=== PATIENT | female | born 1940 | race Caucasian/White ===

== ENCOUNTER → 2018-09-26 14:32 | Emergency (ER) | payer MEDICARE ==
[~2018-09-26 14:32] MED LIST: Ondansetron ODT TAB* 4 MG SL ONE
--- NOTE | 2018-09-26 14:56 | ED ---
Complex/Multi-Sys Presentation - HPI Summary HPI Summary: This patient is a 78 year old F presenting to ED accompanied by family with a chief complaint of N/V and dizziness 0.5 hours after taking some Doxycycline at 1200 today. The patient reports she had a tick bite that was probably there since 09/24/18 since it wasnt engorged and her pulled it out in the morning the next day. They called their PCP and their nurse told them to get some doxycycline. The patient rates the pain 0/10 in severity. Symptoms aggravated by a dose of doxycycline. Symptoms alleviated by nothing. - History Of Current Complaint Chief Complaint: EDNauseaVomitDiarrh Time Seen by Provider: 09/26/18 14:44 Hx Obtained From: Patient, Family/Warhead Maintenance Specialist - in the room Onset/Duration: Sudden Onset, Lasting Hours, Still Present Timing: Constant, Hours Severity Currently: None Aggravating Factor(s): dose of doxycycline Alleviating Factor(s): nothing Associated Signs And Symptoms: Positive: Dizziness, Nausea, Vomiting - Allergies/Home Medications Allergies/Adverse Reactions: Allergies Allergy/AdvReac Type Severity Reaction Status Date / Time Beta-Blockers Allergy See Comment Verified 09/26/18 15:58 (Beta-Adrenergic Bloc Home Medications: Home Medications Levothyroxine TAB* [Synthroid TAB*] 88 mcg PO DAILY 09/26/18 [History Confirmed 09/26/18] Multivitamins/Minerals TAB* [Theragran/minerals TAB*] 1 tab PO DAILY 09/26/18 [ History Confirmed 09/26/18] Red Yeast Rice 600 mg PO DAILY 09/26/18 [History Confirmed 09/26/18] PMH/Surg Hx/FS Hx/Imm Hx - Cancer History Hx Chemotherapy: No Hx Radiation Therapy: Yes - GRAVES DISEASE Infectious Disease History: No Infectious Disease History: Denies: Traveled Outside the [place] in Last 30 Days - Social History Alcohol Use: None Substance Use Type: Reports: None Smoking Status (MU): Never Smoked Tobacco Review of Systems Positive: Vomiting, Nausea Neurological: Other - dizziness All Other Systems Reviewed And Are Negative: Yes Physical Exam - Summary Physical Exam Summary: Appearance: Well-appearing, Well-nourished, lying in bed comfortable Skin: Warm, dry, no obvious rash Eyes: sclera anicteric, no conjunctival pallor ENT: mucous membranes moist Neck: deferred Respiratory: No signs of respiratory distress Cardiovascular: Appears well perfused, pulses are nml Abdomen: soft Musculoskeletal: Moving all 4 extremities without obvious discomfort Neurological: Awake and alert, mentation is normal, speech is fluent and appropriate Psychiatric: affect is normal, does not appear anxious or depressed Triage Information Reviewed: Yes Vital Signs On Initial Exam: Initial Vitals Temp Pulse Resp BP Pulse Ox 98.5 F 64 16 131/79 95 09/26/18 14:37 09/26/18 14:37 09/26/18 14:37 09/26/18 14:37 09/26/18 14:37 Vital Signs Reviewed: Yes Diagnostics - Vital Signs Vital Signs Temp Pulse Resp BP Pulse Ox 09/26/18 14:37 98.5 F 64 16 131/79 95 - Laboratory Lab Statement: Any lab studies that have been ordered have been reviewed, and results considered in the medical decision making process. Re-Evaluation - Re-Evaluation First Eval Re-Evaluation Time: 15:30 Change: Unchanged Comment: Patient has not received zofran yet. Condition was unchanged. Complex Multi-Symp Course/Dx Assessment/Plan: This patient is a 78 year old F presenting to ED accompanied by family with a chief complaint of N/V and dizziness 0.5 hours after taking some Doxycycline at 1200 today. The patient was given some Zofran for the nausea. The patient feels better in the ER after given the zofran. Patient will be discharged with dx of medication reaction and vomiting. Patient understands and agrees with this plan. - Diagnoses Differential Diagnoses/HQI/PQRI: Other - medication reaction and vomiting Provider Diagnoses: Medication reaction, Vomiting Discharge - Sign-Out/Discharge Documenting (check all that apply): Patient Departure - discharge Patient Received Moderate/Deep Sedation with Procedure: No - Discharge Plan Condition: Good Disposition: HOME Patient Education Materials: Antibiotic Medication Allergy (ED) Referrals: Taco Gomez DO [Primary Care Provider] - Additional Instructions: You seem to have become ill from the medication prescribed to prevent Lyme disease. It doesn't sound like the tick was attached to you long enough to transmit Lyme, so in any event I would not recommend further antibiotics. - Billing Disposition and Condition Condition: GOOD Disposition: Home - Attestation Statements Document Initiated by Scribe: Yes Documenting Scribe: Brayden Claire Provider For Whom Scribe is Documenting (Include Credential): Daren Kiran MD Scribe Attestation: I, Brayden Claire, scribed for Daren Kiran MD on 09/26/18 at 1711. Scribe Documentation Reviewed: Yes Provider Attestation: The documentation as recorded by the scribeBrayden accurately reflects the service I personally performed and the decisions made by me, Daren Kiran MD Status of Scribe Document: Viewed
[2018-09-26 16:35] VITALS: BP 127/73
== END | disposition home or self-care (01) ==
LOC: ED 14:32
DX: R11.10 Vomiting, unspecified (principal); R19.7 Diarrhea, unspecified; E05.00 Thyrotoxicosis with diffuse goiter without thyrotoxic crisis or storm; T36.4X5A Adverse effect of tetracyclines, initial encounter; Y92.9 Unspecified place or not applicable; T14.8XXA Other injury of unspecified body region, initial encounter; W57.XXXA Bitten or stung by nonvenomous insect and other nonvenomous arthropods, initial encounter
CPT/HCPCS: 99282; A9270-GY

== ENCOUNTER 2019-06-11 22:02 | Inpatient (IN) | payer MEDICARE ==
--- NOTE | 2019-06-11 22:26 | ED ---
Syncope/Near Syncope - HPI Summary HPI Summary: Patient complains of one episode of near syncope and one episode of syncope today. Syncopal episode after patient started from sitting position. First episode of near-syncope occur with walking. States right thigh pain status post fall from syncope. One episode of vomiting after syncopal episode. Patient brought by EMS, BGL 138. Patient denies SOB, CP, N/V/V/take any other injury, pain or symptoms. Patient states history of vasovagal, but denies regular lightheadedness with change in position. States history of syncope when she gave blood 10 years ago, another episode of syncope secondary to pain after falling. Denies any other chronic episodes of lightheadedness or syncope , until today. Medical history is hypothyroid. - History Of Current Complaint Chief Complaint: EDSyncope Time Seen by Provider: 06/11/19 22:24 Hx Obtained From: Patient, Family/Swimming Teacher Onset/Duration: Sudden Onset Timing: Intermittent Episode Lasting Context: Witnessed Activity At Onset: Other Associated Head Trauma: No Aggravating Factor(s): Position Change Alleviating Factor(s): Spontaneous Resolution - Allergies/Home Medications Allergies/Adverse Reactions: Allergies Allergy/AdvReac Type Severity Reaction Status Date / Time Beta-Blockers Allergy See Comment Verified 09/26/18 15:58 (Beta-Adrenergic Bloc PMH/Surg Hx/FS Hx/Imm Hx Endocrine/Hematology History: Denies: Hx Anticoagulant Therapy Cardiovascular History: Denies: Hx Pacemaker/ICD History: Denies: Hx Dialysis Sensory History: Denies: Hx Eye Prosthesis Opthamlomology History: Denies: Hx Legally Blind EENT History: Denies: Hx Deafness - Cancer History Hx Chemotherapy: No Hx Radiation Therapy: Yes - GRAVES DISEASE Infectious Disease History: No Infectious Disease History: Denies: Traveled Outside the [place] in Last 30 Days - Family History Known Family History: Positive: Non-Contributory - Social History Alcohol Use: None Substance Use Type: Reports: None Smoking Status (MU): Never Smoked Tobacco Review of Systems Constitutional: Negative Eyes: Negative ENT: Negative Cardiovascular: Negative Respiratory: Negative Gastrointestinal: Negative Genitourinary: Negative Musculoskeletal: Other Skin: Negative Positive: Syncope Psychological: Normal All Other Systems Reviewed And Are Negative: Yes Physical Exam - Summary Physical Exam Summary: No ecchymosis, erythema, deformity, swelling noted to right hip and right thigh. Mild pain with palpation of right thigh. Triage Information Reviewed: Yes Vital Signs On Initial Exam: Initial Vitals Temp Pulse Resp BP Pulse Ox 98.2 F 66 18 131/72 96 06/11/19 22:14 06/11/19 22:14 06/11/19 22:14 06/11/19 22:14 06/11/19 22:14 Vital Signs Reviewed: Yes Appearance: Positive: Well-Appearing Skin: Positive: Warm Head/Face: Positive: Normal Head/Face Inspection Eyes: Positive: Normal Neck: Positive: Supple Respiratory/Lung Sounds: Positive: Clear to Auscultation Cardiovascular: Positive: Normal Abdomen Description: Positive: Nontender Musculoskeletal: Positive: Normal Neurological: Positive: Normal Psychiatric: Positive: Normal AVPU Assessment: Alert - Sophia Coma Scale Best Eye Response: 4 - Spontaneous Best Motor Response: 6 - Obeys Commands Best Verbal Response: 5 - Oriented Coma Scale Total: 15 Procedures - Sedation Patient Received Moderate/Deep Sedation with Procedure: No Diagnostics - Vital Signs Vital Signs Temp Pulse Resp BP Pulse Ox 06/11/19 22:14 98.2 F 66 18 131/72 96 - Laboratory Result Diagrams: 06/11/19 22:35 06/11/19 22:35 Lab Statement: Any lab studies that have been ordered have been reviewed, and results considered in the medical decision making process. Course/Dx Course Of Treatment: Patient complains of one episode of near syncope and one episode of syncope today. Syncopal episode after patient started from sitting position. First episode of near-syncope occur with walking. States right thigh pain status post fall from syncope. One episode of vomiting after syncopal episode. Patient brought by EMS, BGL 138. Patient denies SOB, CP, N/V /V/take any other injury, pain or symptoms. Patient states history of vasovagal , but denies regular lightheadedness with change in position. States history of syncope when she gave blood 10 years ago, another episode of syncope secondary to pain after falling. Denies any other chronic episodes of lightheadedness or syncope, until today. Medical history is hypothyroid. Vital signs within normal limits. TSH 0.09. Labs otherwise unremarkable. EKG sinus rhythm, heart rate of 75, left axis deviation. Patient O2 sats dropped to 88 during stay in the ED. Admitted to hospitalist for syncope and hypoxia. - Diagnoses Provider Diagnoses: Syncope, Hypoxia Discharge ED - Sign-Out/Discharge Documenting (check all that apply): Patient Departure - Discharge Plan Condition: Stable Disposition: ADMITTED TO [facility] Referrals: Taco Gomez DO [Primary Care Provider] - - Billing Disposition and Condition Condition: STABLE Disposition: Admitted to [facility]
[2019-06-11 22:42] LABS: ABS Eosinophils 0.3 10^3/ul (0-0.6); ABS Lymphocytes 1.8 10^3/ul (1.0-4.8); ABS Monocytes 0.8 10^3/ul (0-0.8); ABS Neutrophils 6.6 10^3/ul (1.5-7.7); Hematocrit 39 % (35-47); Hemoglobin 13.2 g/dL (12.0-16.0); Mean Corpuscular HGB Conc 34 g/dL (31-36); Mean Corpuscular Hemoglobin 32 pg (27-31); Mean Corpuscular Volume 93 fL (80-97); Mean Platelet Volume 9.2 fL (7.4-10.4); Platelet Count 192 10^3/uL (150-450); Red Blood Count 4.18 10^6 /uL (3.70-4.87); Red Cell Distribution Width 13 % (10-15); White Blood Count 9.6 10^3/uL (3.5-10.8)
[2019-06-11 22:59] LABS: Albumin 3.7 g/dL (3.2-5.2); Albumin/Globulin Ratio 1.2 (1-3); BUN/Creatinine Ratio 19.6 (8-20); C Reactive Protein 2.23 mg/L (<8.01); Calcium 8.9 mg/dL (8.6-10.3); EGFR African American 63.6 (>60); EGFR Non-African American 52.5 (>60); Globulin 3.1 g/dL (2-4); Magnesium 2.2 mg/dL (1.9-2.7); Potassium 3.8 mmol/L (3.5-5.0); Total Bilirubin 0.3 mg/dL (0.2-1.0); Total Protein 6.8 g/dL (6.4-8.9)
[2019-06-11 23:00] LABS: Troponin I 0.01 ng/mL (<0.03)
[2019-06-11 23:13] LABS: TSH (Thyroid Stimulating Horm) 0.09 mcIU/mL (0.34-5.60)
[2019-06-11] MEDS ORDERED: NS 0.9% 1000 ML** 1,000 ML IV ONE (23:47)
[2019-06-12 02:53] LABS: Influenza A Molecular Negative (Negative); Influenza B Molecular Negative (Negative)
--- NOTE | 2019-06-12 04:55 | ADMNOTE ---
Subjective Interval History: this is my HP 79 yo female with hx of hypothyroidism presented with an episode of syncope and intractable vomiting. It all started while she was walking, she felt as if she was going to pass out. It resolved. But then later in the day, when she went from sitting to standing, she felt lightheaded, fell to her knees and lost consciousness. She woke up in ambulance. She then started having multiple episodes of vomiting. No chest pain, no vertigo, no MURPHY. She is able to walk now, but she has a lot of pain in her right leg. The ED did obtain imagings of her hip and femur, official reads still pending. Family History: Unchanged from Admission Social History: Unchanged from Admission Past Medical History: Unchanged from Admission Review of Systems - Measurements Intake and Output: Intake and Output Last 24 Hours 06/09/19 06/10/19 06/11/19 06/12/19 06:59 06:59 06:59 06:59 Weight 145 lb - Review of Systems Constitutional Symptoms: Positive: Unexplained Falls Negative: Weight Gain, Weight Loss, Weakness, Fatigue, Fever, Night Sweats, Other Dermatology: Negative: Normal, Rash, Skin Lesions, Cancer, Skin Lumps, Other HEENT: Negative: Normal, Change in Hearing, Vertigo, Dental Problems, Tinnitus, Sinus Problem, Other Eyes: Negative: Normal, Change in Vision, Double Vision, Eye Pain, Glaucoma, Cataract, Contacts or Glasses, Other Thyroid: Negative: Normal, Goiter, Thyroid Nodule, Cold Intolerance, Heat Intolerance , Sweatiness, Tremor, Frequent Defecation, Constipation, Palpitations, Primary Hypothyroidism, Primary Hyperthyroidism, Weight Loss, Weight Gain, Change in Skin/Hair, Change in Menstruation, Radiation Exposure, Other Pulmonary: Negative: Normal, Cough, Sputum, Hemoptysis, Wheezing, Respiratory Distress, Shortness of Breath, COPD, Asthma, Exercise Intolerance, Home Oxygen, Other Cardiology: Negative: Normal, Chest Pain, Shortness of Breath, Palpitations, Swelling of Ankles, Peripheral Vascular Dis, Edema, Faintness, Syncope, Claudication, Proximal NocturnalDyspnea, Orthopnoea, Other Gastroenterology: Negative: Normal, Abdominal Pain, Nausea, Vomiting, Anorexia, Indigestion, Difficulty Swallowing, Heartburn, Constipation, Diarrhea, Blood in Stools, Change in Bowel Habits, Haematemesis, Melena, Other Genital - Urinary: Negative: Normal, Dysuria, Hematuria, Polyuria, Nocturia, Other Endocrinology: Negative: Normal, Thyroid Problems, Adrenal Problems, Gonadal Problems, Family Hx Endocrine Disorders, Obesity, Diabetes Mellitus, Hyperglycemia, Hx Hypoglycemia, Diabetic Foot Ulcers, Calluses, Hirsutism, Menstrual Abnormalities , Polydipsia, Polyuria, Gonadal Problems, Gynecomastia, Pituitary disease, Other Hematologic/Lymphatic: Negative: Anemia, Easy Bruising, Hx Leukemia, Hx Lymphoma, Use of Anticoagulant, Use of Antiplatelet Drugs, Other Neurology: Negative: Normal, Headache, Migraines, Change in Vision, Diplopia, Dizziness , Change in Balancing, Change in Coordination, Change in Memory, Change in Speech, Change in Sphincter Function, Change in Walking, Numbness\Paresthesiae, Unexplained Weakness, Hx of Stroke\TIA, Hx of Seizures, Other Psychiatry: Negative: Normal, Depression, Anxiety, Depressed Mood, Anhedonia, Sexual Dysfunction, Weight Change, Guilt Feelings, Tearfulness, Unusual Fatigue, Unusual Anxiety, Suicidal Ideation, Hypomania, Eating Disorders, Other Allergic/Immunologic: Negative: Hx Anaphylaxis, Hx Angioedema, Hx Environmental, Hx Seasonal, Asthma, Hx HIV, Immunocompromise, Swollen Glands LymphNodes, Other Objective Active Medications: Levothyroxine Sodium (Synthroid Tab*) 88 mcg PO DAILY@0600 [facility] Vital Signs - 8 hr 06/11/19 06/11/19 06/11/19 22:14 22:34 23:03 Temperature 98.2 F Pulse Rate 66 72 80 Respiratory 18 20 Rate Blood Pressure 131/72 (mmHg) O2 Sat by Pulse 96 97 90 Oximetry 06/12/19 06/12/19 06/12/19 00:00 01:47 02:12 Temperature Pulse Rate 70 95 96 Respiratory Rate Blood Pressure 147/88 (mmHg) O2 Sat by Pulse 97 87 98 Oximetry 06/12/19 06/12/19 06/12/19 02:13 02:15 02:28 Temperature Pulse Rate 98 97 98 Respiratory Rate Blood Pressure 155/99 155/90 (mmHg) O2 Sat by Pulse 98 98 Oximetry 06/12/19 06/12/19 06/12/19 02:42 03:00 03:57 Temperature 98.1 F Pulse Rate 76 83 98 Respiratory 18 Rate Blood Pressure 169/91 155/90 (mmHg) O2 Sat by Pulse 95 96 96 Oximetry Oxygen Devices in Use Now: None Appearance: NID Eyes: No Scleral Icterus, PERRLA Ears/Nose/Mouth/Throat: NL Teeth, Lips, Gums, Mucous Membranes Moist Neck: NL Appearance and Movements; NL JVP, Trachea Midline Respiratory: Symmetrical Chest Expansion and Respiratory Effort, Clear to Auscultation Cardiovascular: NL Sounds; No Murmurs; No JVD, No Edema Abdominal: NL Sounds; No Tenderness; No Distention Extremities: No Edema, No Clubbing, Cyanosis Skin: No Rash or Ulcers, No Nodules or Sclerosis Neurological: Alert and Oriented x 3, NL Sensation, NL Muscle Strength and Tone Result Diagrams: 06/11/19 22:35 06/11/19 22:35 Assess/Plan/Problems-Billing Assessment: - Patient Problems (1) Syncope Current Visit: Yes Status: Acute Code(s): R55 - SYNCOPE AND COLLAPSE SNOMED Code(s): 884529275 Comment: 1 episode earlier today and she hurt her leg. XR of her femur and hip still pending official read tele, echo pain control (2) Hypothyroidism Current Visit: Yes Status: Acute Code(s): E03.9 - HYPOTHYROIDISM, UNSPECIFIED SNOMED Code(s): 62874298 Comment: resume synthroid (3) Full code status Current Visit: Yes Status: Acute Code(s): Z78.9 - OTHER SPECIFIED HEALTH STATUS SNOMED Code(s): 157278312 (4) DVT prophylaxis Current Visit: Yes Status: Acute Code(s): Z29.9 - ENCOUNTER FOR PROPHYLACTIC MEASURES, UNSPECIFIED SNOMED Code(s): 987682539 Comment: heparin
[2019-06-12 04:56] LABS: Urine Appearance Cloudy; Urine Bilirubin Negative (Negative); Urine Blood Negative (Negative); Urine Color Yellow; Urine Glucose Negative (Negative); Urine Ketones Negative (Negative); Urine Nitrite Negative (Negative); Urine Protein Negative (Negative); Urine Specific Gravity 1.017 (1.010-1.030); Urine Urobilinogen Negative (Negative)
[2019-06-12] MEDS ORDERED: oxyCODONE TAB* 5 MG TAB PO PRN (04:59)
[2019-06-12] MEDS: Acetaminophen TAB* 325 MG PO PRN (05:45)
[2019-06-12] MEDS: LEVOTHYROXINE 88 MCG PO SCH (05:48)
--- NOTE | 2019-06-12 10:24 | ECHO ---
*[facility]* [place] [address] Fax #: [phone] Transthoracic Echocardiogram Patient: Lizzette Edge : 1940 Study Date: 06/12/2019 Age: 79 Gender: F HR: 78 bpm Height: 65 in /165.1 cm BSA: 1.73 m^2 Weight: 144.7 lb /65.8 kg BMI: 24.1 kg/m^2 *Manager Balance: * Yajaira Andrew [facility] *Referring Physician: * Molly Marcial *Reading Physician: * Cm Bliss MD Indications: Syncope. History: Syncope. Conclusions Summary: - Left ventricle: Systolic function is normal. The estimated ejection fraction is 55-60%. Wall motion is normal; there are no regional wall motion abnormalities. - Mitral valve: There is trace regurgitation. - Aortic valve: There is no evidence of stenosis. - Tricuspid valve: There is no significant regurgitation. - Pulmonary arteries: Systolic pressure can not be accurately estimated. - Study data: No prior study is available for comparison. Study data: Transthoracic echocardiogram. Procedure: Transthoracic echocardiography was performed. Image quality was fair. Complete 2D, spectral Doppler, and color flow Doppler. Location: Bedside. Patient status: Inpatient. Patient room number: 443 02. No prior study is available for comparison. Rhythm: Normal sinus rhythm. Findings Left ventricle: The cavity size is normal. Wall thickness is mildly increased. Systolic function is normal. The estimated ejection fraction is 55-60%. Wall motion is normal; there are no regional wall motion abnormalities. Left ventricular diastolic function parameters are normal for the patient's age. Right ventricle: The cavity size is normal. Systolic function is normal. Left atrium: The atrium is normal in size. Right atrium: The atrium is normal in size. Mitral valve: The leaflets are normal thickness. There is no evidence of stenosis. There is trace regurgitation. Aortic valve: The valve is trileaflet. The leaflets are mildly thickened. There is no evidence of stenosis. There is no significant regurgitation. Tricuspid valve: The leaflets are normal thickness. There is no evidence of stenosis. There is no significant regurgitation. Pulmonic valve: The leaflets are normal thickness. There is no evidence of stenosis. There is trace regurgitation. Aorta: The aortic root appears normal. The aortic arch appears normal. Pericardium: There is no significant pericardial effusion. Pulmonary arteries: Systolic pressure can not be accurately estimated. Systemic veins: Inferior vena cava: The vessel is normal in size. There is (>= 50%) respiratory change in the IVC dimension. Measurements Left ventricle Value Ref Aortic valve Value Ref LAURA, LAX 4.5 cm 3.8 - 5.2 Ervin diam, ED 1.9 cm ---- ESD, LAX 3.3 cm 2.2 - 3.5 Peak v, S 1.11 m/sec ---- FS, LAX (L) 25 % 27 - 45 VTI, S 21.0 cm ---- PW, ED, LAX (H) 1.2 cm 0.6 - 0.9 Mean grad, S 2.0 mm Hg ---- E', lat ervin, TDI (L) 4.9 cm/sec >=10.0 Peak grad, S 5.0 mm Hg ---- E/e', lat ervin, 7 TDI Mitral valve Value Ref E', med ervin, TDI (L) 4.2 cm/sec >=7.0 Peak E 0.35 m/sec ---- E/e', med ervin, 8 Peak A 0.81 m/sec -- -- TDI Decel time 92 ms ---- E', avg, TDI 4.6 cm/sec Peak E/A ratio 0.4 -- -- E/e', avg, TDI 8 <=14 Pulmonic valve Value Ref LVOT Value Ref Peak v, S 0.63 m/sec ---- Peak sia, S 0.92 m/sec Peak grad, S 2.0 mm Hg ---- Mean grad, S 2 mm Hg Aortic root Value Ref Ventricular septum Value Ref Root diam 2.8 cm <3.9 IVS, ED (H) 1.1 cm 0.6 - 0.9 Root max diam, ED 2.8 cm <3.9 Right ventricle Value Ref Ascending aorta Value Ref LAURA, LAX 2.2 cm AAo AP diam, S 2.8 cm ---- LAURA minor ax, A4C 2.8 cm 1.9 - 3.5 AAo AP diam/bsa, S 1.6 cm/m^2 ---- mid Aortic arch Value Ref Left atrium Value Ref Arch diam 2.5 cm ---- AP dim, ES 3.20 cm 2.70 - 3.80 Decending aorta Value Ref ML dim, A4C 4.4 cm Joseph peak sia 0.82 m/sec ---- SI dim, A4C 4.5 cm Vol/bsa, ES, A/L 25 ml/m^2 16 - 34 Inferior vena cava Value Ref Diam 1.2 cm ---- Right atrium Value Ref SI dim, ES 4.2 cm 3.4 - 5.3 ML dim, ES, A4C 2.8 cm 2.6 - 4.4 Estimated RAP 8 mm Hg Legend: (L) and (H) julien values outside specified reference range. Prepared and electronically signed by Cm Bliss MD 06/12/2019 10:24
--- NOTE | 2019-06-12 10:53 | PN ---
Subjective Date of Service: 06/12/19 Interval History: Ms. Jones is feeling much better today. She is not having any pain. Took Tylenol this morning. No dizziness or near syncope. Denies CP or SOB. She was hoping to go home today and is surprised to hear she has a fractured hip. No concerns from nursing. Family History: Unchanged from Admission Social History: Unchanged from Admission Past Medical History: Unchanged from Admission Objective Active Medications: Acetaminophen (Tylenol Tab*) 650 mg PO Q6H PRN PAIN - MILD Levothyroxine Sodium (Synthroid Tab*) 88 mcg PO DAILY@0600 [facility] Oxycodone HCl (Roxycodone Tab*) 5 mg PO Q6H PRN PAIN - SEVERE Vital Signs - 8 hr 06/12/19 06/12/19 06/12/19 03:00 03:57 04:11 Temperature 98.1 F 98.6 F Pulse Rate 83 98 98 Respiratory 18 18 Rate Blood Pressure 155/90 155/93 (mmHg) O2 Sat by Pulse 96 96 99 Oximetry 06/12/19 07:29 Temperature 97.3 F Pulse Rate 82 Respiratory 18 Rate Blood Pressure 127/71 (mmHg) O2 Sat by Pulse 98 Oximetry Oxygen Devices in Use Now: None Appearance: Elderly female sitting in bed in NAD Ears/Nose/Mouth/Throat: Mucous Membranes Moist Neck: NL Appearance and Movements; NL JVP, Trachea Midline Respiratory: Symmetrical Chest Expansion and Respiratory Effort, Clear to Auscultation Cardiovascular: NL Sounds; No Murmurs; No JVD, RRR Abdominal: NL Sounds; No Tenderness; No Distention Extremities: No Edema Neurological: Alert and Oriented x 3 Lines/Tubes/Other Access: Clean, Dry and Intact Peripheral IV Nutrition: Taking PO's Result Diagrams: 06/11/19 22:35 06/11/19 22:35 Assess/Plan/Problems-Billing Assessment: Ms. Jones is a 79 yo F with PMH of hypothyroidism who presented to the ED after a syncopal event and was found to have a right hip fracture. - Patient Problems (1) Closed right hip fracture Code(s): S72.001A - FRACTURE OF UNSP PART OF NECK OF RIGHT FEMUR, INIT Comment : - Secondary to syncopal event prior to admission - Xray in ED showing minimally impacted and minimally displaced subcapital right femoral neck fracture - Appreciate Ortho consult - Bedrest and NPO for possible surgery later today - RCRI score is 0 indicating a 3.9% 30-day risk of adverse event; echo without abnormalities; EKG shows NSR with a left axis deviation, inverted T waves in III and V1 (consistent with EKG in 2009); no respiratory concerns; patient has been medically optimized for surgery today/tomorrow - Continue Tylenol (2) Syncope Code(s): R55 - SYNCOPE AND COLLAPSE Comment: - One episode earlier prior to admission - Negative orthostatic VS - Echo unremarkable - No abnormalities noted on tele - Possibly secondary to dehydration (3) Hypothyroidism Code(s): E03.9 - HYPOTHYROIDISM, UNSPECIFIED Comment: - Continue levothyroxine (4) DVT prophylaxis Code(s): Z29.9 - ENCOUNTER FOR PROPHYLACTIC MEASURES, UNSPECIFIED Comment: - SCDs (5) Full code status Code(s): Z78.9 - OTHER SPECIFIED HEALTH STATUS Comment: Status and Disposition: Inpatient. Anticipate d/c home when medically stable. Attending: Jamaica Mariano
--- NOTE | 2019-06-12 13:37 | CONSULT ---
Consult Consult: Patient Name and : Lizzette Edge, 1940 Provider: Dr. Saucedo/Dr. Humphrey HPI: The pt is a 79 y/o female who was BIBA last night. She states that she was sitting on a stool yesterday and went to stand up when she fainted and fell onto her right hip. She states that her and children could not get her to be very responsive at that point. SHe was vomiting and her eyes had rolled back into her head. She states that she was taken in by ambulance and admitted to the hospital. She was given food this morning at 0730 and ate cereal and orange juice. She has not had any food since then. She states that the ER last night told her that she did not have a fracture and therefore walked on her leg using a walker this morning to ambulate to the bathroom. She was instructed that she does indeed have a fracture and she should remain NWB of the RLE. PMH: Hypothyroidism MEDICATIONS: Acetaminophen (Tylenol Tab*) 650 mg PO Q6H PRN PRN Reason: PAIN - MILD Last Admin: 06/12/19 05:45 Dose: 650 mg Levothyroxine Sodium (Synthroid Tab*) 88 mcg PO DAILY@0600 [facility] Last Admin: 06/12/19 05:48 Dose: Not Given Oxycodone HCl (Roxycodone Tab*) 5 mg PO Q6H PRN PRN Reason: PAIN - SEVERE Allergies Allergy/AdvReac Type Severity Reaction Status Date / Time Beta-Blockers Allergy See Comment Verified 09/26/18 15:58 (Beta-Adrenergic Bloc PSH: Cholecystectomy SOCIAL HISTORY: Lives with . 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 Denies any drug use or smoking. Admits to occasional glass of wine. FAMILY: Non contributory ROS: General: Denies fevers, chills or night sweats. No known anesthesia problems. HEENT: denies MURPHY, lightheadedness or syncopal episodes Cardiothoracic: Negative for chest pain, heart palpitations, or edema Pulmonary: Negative for SOB with exertion, chronic cough, COPD or asthma GI: denies N/V/D/C or GERD : Negative for nocturia, urinary frequency, urinary urgency, history of UTIs or kidney problems Musculoskeletal: negative for chronic or intermittent back pain or fractures Neuro: Denies paresthesias, numbness, seizure, stroke, epilepsy, depression or anxiety Integumentary: No abrasions, lesions, rashes, lumps or open sores PHYSICAL EXAM: General: Alert & oriented, year old in no acute distress. Appropriate mood and affect HEENT: Normocephalic, atraumatic, hearing and vision grossly intact Cardio: regular rate and rhythm, S1 S2, no murmurs appreciated, no edema Pulmonary: Lungs clear to auscultation bilaterally, no wheezes, rales or rhonchi Musculoskeletal/Neurologic: Right lower extremity appears in good alignment. No bruising is present about the hip. ROM and strength were deffered at this point. She has full sensation to light touch intact distally. She has a 2+ DP pulse. IMAGING: Xrays taken on 06/11/2019 show a minimally impacted subcapital femoral neck fracture of the right hip. Xrays repeated and taken this morning show no displacement or change in the previous fracture. IMPRESSION: Right hip, minimally impacted subcapital femoral neck fracture. PLAN: We obtained a new set of xrays to evaluate for any change Hospitalists cleared the pt for surgery She will remain NPO and NWB of the RLE We will obtain a CT scan of the fracture to further evaluate . We will take the pt to the OR for a right hip cannulated screw fixation
[2019-06-12] MEDS ORDERED: Famotidine IV* 10 MG/ML 2 ML (20 mg) IV ONE (14:44)
[2019-06-12] MEDS ORDERED: Ondansetron ODT TAB* 4 MG PO ONE (14:45)
[2019-06-12] MEDS ORDERED: Buffered Lidocaine 1% SYRIN* 1 ML/SYRINGE INTRADERM ONE (14:45)
[2019-06-12] MEDS ORDERED: Dexamethasone TAB* 4 MG PO ONE (14:45)
[2019-06-12] MEDS ORDERED: Lactated Ringers 1000 ML Bag* 1,000 ML IV SCH (15:00)
--- NOTE | 2019-06-12 17:27 | PN ---
PROGRESS NOTE: DATE OF VISIT: 06/12/19 HISTORY: Lizzette is a pleasant 79-year-old female who had a syncopal episode and sustained a valgus impacted right femoral neck fracture. She had a CT scan this afternoon which shows the valgus impaction but no significant separation of the bone fragments which would make her appropriate for an attempted percutaneous pinning of the right hip. The surgical load this afternoon for emergency cases and urgent cases is quite busy, so we have arranged for some optimal time tomorrow 06/13/19 late morning. This would be more optimal time to fix her hip and I will be explaining this to the family. She is n.p.o. after midnight. [id number]/[facility] #: [id number] ESTEVAN
[2019-06-12] MEDS ORDERED: Ondansetron INJ* 2 MG/ML VIAL IV PRN (18:05)
[2019-06-13 04:44] LABS: ABS Eosinophils 0.2 10^3/ul (0-0.6); ABS Lymphocytes 1.1 10^3/ul (1.0-4.8); ABS Monocytes 1.1 10^3/ul (0-0.8); ABS Neutrophils 8.8 10^3/ul (1.5-7.7); Eosinophil % 1.6 %; Hematocrit 41 % (35-47); Hemoglobin 13.5 g/dL (12.0-16.0); Lymphocyte % 10.1 %; Mean Corpuscular HGB Conc 33 g/dL (31-36); Mean Corpuscular Hemoglobin 31 pg (27-31); Mean Corpuscular Volume 93 fL (80-97); Mean Platelet Volume 8.8 fL (7.4-10.4); Platelet Count 160 10^3/uL (150-450); Red Blood Count 4.35 10^6 /uL (3.70-4.87); Red Cell Distribution Width 13 % (10-15); White Blood Count 11.3 10^3/uL (3.5-10.8)
[2019-06-13 04:49] LABS: INR 1.04 (0.82-1.09)
[2019-06-13 05:00] LABS: BUN/Creatinine Ratio 17.1 (8-20); EGFR African American 81.8 (>60); EGFR Non-African American 67.6 (>60)
[2019-06-13] MEDS: LEVOTHYROXINE 88 MCG PO SCH (05:44)
[2019-06-13] MEDS ORDERED: HYDROmorphone INJ1* 1 MG/ML SYRINGE IV PRN ×2 (06:00→13:36)
[2019-06-13] MEDS ORDERED: fentaNYL* 50 MCG/ML 2 ML VIAL (100 MCG VIAL) IV PRN (06:00)
[2019-06-13] MEDS ORDERED: DiMENhydriNATE IV* 50 MG/ML VIAL IV PUSH PRN (06:00)
[2019-06-13] MEDS ORDERED: PROCHLORPERAZINE INJ 5 MG/ML 2 ML VIAL IV PRN (06:00)
[2019-06-13] MEDS ORDERED: Naloxone* 0.4 MG/ML 1 ML VIAL IV PRN ×2 (06:00→13:36)
[2019-06-13] MEDS: Lactated Ringers 1000 ML Bag* 1,000 ML IV SCH ×2 (07:07→20:05)
[2019-06-13] MEDS ORDERED: Famotidine IV* 10 MG/ML 2 ML (20 mg) IV ONE (10:00)
[2019-06-13] MEDS ORDERED: Dexamethasone TAB* 4 MG PO ONE (10:00)
[2019-06-13] MEDS ORDERED: Buffered Lidocaine 1% SYRIN* 1 ML/SYRINGE INTRADERM ONE (10:00)
[2019-06-13] MEDS ORDERED: Ondansetron ODT TAB* 4 MG PO ONE (10:00)
[2019-06-13] MEDS ORDERED: ceFAZolin 2 GM PREMIX in ORs 2 GM/50 ML BAG ONE (11:59)
[2019-06-13] MEDS ORDERED: Propofol* 10 MG/ML 50 ML BTL ONE (12:35)
[2019-06-13] MEDS ORDERED: Midazolam* 1 MG/ML 2 ML VIAL (2 MG) ONE (12:35)
[2019-06-13] MEDS ORDERED: KETAMINE HCL* 50 MG/ML 10 ML VIAL ONE (12:35)
[2019-06-13] MEDS ORDERED: fentaNYL* 50 MCG/ML 2 ML VIAL (100 MCG VIAL) ONE (12:35)
[2019-06-13] MEDS ORDERED: Phenylephrine 10 MG/ML VIAL* 1 ML VIAL ONE (12:35)
[2019-06-13] MEDS ORDERED: oxyCODONE TAB* 5 MG TAB PO PRN (13:36)
[2019-06-13] MEDS ORDERED: Ondansetron INJ* 2 MG/ML VIAL IV PRN (13:36)
--- NOTE | 2019-06-13 13:44 | OP ---
Operative Report - Blank - Operative Report Date of Operation: 06/13/19 Note: PATIENT: Lizzette Edge DATE OF : 1940 DATE OF SURGERY: 06/13/2019 SURGEON: Zia Burr MD [employer]: AMELIA Curran, whos assistance was necessary for positioning, retraction, help with instrumentation, and closure. ANESTHESIOLOGIST: Dr. Ramirez PREOPERATIVE DIAGNOSIS: Right valgus impacted femoral neck hip fracture. POSTOPERATIVE DIAGNOSIS: Right valgus impacted femoral neck hip fracture. PROCEDURE: Closed reduction and internal fixation of the right femoral neck hip fracture with cannulated screws. ANESTHESIA: Spinal IMPLANTS: Three Synthes 7.3mm cannulated screws ESTIMATED BLOOD LOSS: Minimal SPECIMENS: None. DRAIN: None TOURNIQUET TIME: None. COMPLICATIONS: None. STATUS: Stable from the operating room to the recovery room and then readmitted to the floor. INDICATIONS FOR PROCEDURE: Ms. Edge sustained a fall with the above- mentioned injury. Both operative and non operative treatment alternatives were reviewed. Further, the nature and risks of surgery were reviewed in careful detail. Our discussions regarding the risks of surgery included, but were not limited to, bleeding, need for blood transfusion, infection, wound problems, malunion, nonunion, AVN, nerve injury, neuroma, RSD, persistent symptoms, need for further surgery and even the remote chance of catastrophic complication. DESCRIPTION OF PROCEDURE: The patient was seen in the preoperative holding unit and informed written consent was obtained. The appropriate extremity was marked. The patient was then brought to the operating room anesthesia was induced. The patient was then carefully positioned on the fracture table and all bony prominences were padded with great care. We fluoroscopically assessed the fracture. A chlorhexidine-based pre-scrub was performed followed by prep and drape in standard sterile fashion with ChloraPrep. A surgical safety pause was then conducted in which we confirmed the appropriate patient, extremity, planned procedure, availability of equipment, indication and administration of prophylactic antibiotics, and DVT prophylaxis in the form of a compression boot on the non-surgical extremity. I utilized fluoroscopy to julien out my lateral hip incision. An approximately 3 cm longitudinal incision was made. I incised through the iliotibial band to get down to the lateral femur. I used fluoroscopy to drive a guidewire up the inferior aspect of the femoral neck. Placement of the guidewire was confirmed on both AP and lateral views. I then utilized a parallel aiming guide to place 2 more guidewires superiorly up the femoral neck, anteriorly and posteriorly. The length and placement of the wires were confirmed on both AP and lateral fluoroscopic views. The length of the wires were measured with a depth gauge. The outer cortex of the femur was then over-drilled for the 3 wires. Three Synthes 7.3 mm partially threaded cannulated screws were then placed over the guidewires into the proximal femur/hip. Final placement of the screws was then confirmed on AP and lateral fluoroscopic images. I irrigated copiously and closed in layers utilizing #1 Vicryl for the iliotibial band, 2-0 Vicryl for the Denisse's and dermal layers, and natalie for the skin. A sterile dressing was then applied. At this point, the patient was carefully transitioned off of the fracture table and awakened from anesthesia. There were no complications. All needle and sponge counts were correct at the end of the case. ATTESTATION: I attest I was present and scrubbed and performed the critical parts of the procedure myself. POSTOPERATIVE PLAN: The patient will be admitted back to the medical service postoperatively and may be weightbearing as tolerated and will work with physical therapy. Chemical DVT prophylaxis is recommended for 1 month postoperatively.
[2019-06-13] MEDS: Acetaminophen IV 1GM/100ML * 10 MG/ML VIAL IVPB ONE ×2 (15:13→15:17)
[2019-06-13] MEDS ORDERED: Acetaminophen IV 1GM/100ML * 100 ML ONE (15:16)
--- NOTE | 2019-06-13 18:46 | PN ---
Subjective Date of Service: 06/13/19 Interval History: Ms. Edge is seen in her room post-operatively. She states she has 0/10 pain currently and reports loss of sensation in R hip to knee. The patient states that she was walking yesterday and tripped stepping over a stool. She subsequently fell, landing on the hip. Shortly after, she experienced pain. She then lost consciousness. She reports that this has occurred 2 other times in the past, once after she injured her knee and once after a blood draw. She has been up walking to the bathroom and is urinating. Family History: Unchanged from Admission Social History: Unchanged from Admission Past Medical History: Unchanged from Admission Objective Active Medications: Acetaminophen (Tylenol Tab*) 650 mg PO Q6H PRN PRN Reason: PAIN - MILD Last Admin: 06/12/19 05:45 Dose: 650 mg Enoxaparin Sodium (Lovenox(*)) 40 mg SUBCUT Q24H [facility] Lactated Ringer's (Lactated Ringers 1000 Ml Bag*) 1,000 mls @ 125 mls/hr IV ONCALL [facility] Last Admin: 06/13/19 07:07 Dose: 125 mls/hr Cefazolin Sodium 1 gm/ Sodium (Chloride) 50 mls @ 200 mls/hr IVPB Q8H [facility] Stop: 06/14/19 13:14 Levothyroxine Sodium (Synthroid Tab*) 88 mcg PO DAILY@0600 [facility] Last Admin: 06/13/19 05:44 Dose: Not Given Ondansetron HCl (Zofran Inj*) 4 mg IV Q6H PRN PRN Reason: NAUSEA Oxycodone HCl (Roxycodone Tab*) 5 mg PO Q6H PRN PRN Reason: PAIN - SEVERE Vital Signs: Temp Pulse Resp BP Pulse Ox 97.7 F 69 16 146/76 91 06/13/19 17:30 06/13/19 17:30 06/13/19 17:30 06/13/19 17:30 06/13/19 17:30 Oxygen Devices in Use Now: None Appearance: Ms. Edge is an older white female who is sitting up in bed. She appears comfortable and in no acute distress. Eyes: No Scleral Icterus, PERRLA Ears/Nose/Mouth/Throat: NL Teeth, Lips, Gums, Clear Oropharnyx, Mucous Membranes Moist Neck: NL Appearance and Movements; NL JVP, Trachea Midline Respiratory: Symmetrical Chest Expansion and Respiratory Effort, Clear to Auscultation Cardiovascular: NL Sounds; No Murmurs; No JVD, RRR, No Edema Abdominal: NL Sounds; No Tenderness; No Distention, No Hepatosplenomegaly Extremities: No Edema, No Clubbing, Cyanosis, - - R lateral hip with CDI dressing in place Neurological: Alert and Oriented x 3 Result Diagrams: 06/13/19 04:31 06/13/19 04:31 Assess/Plan/Problems-Billing Assessment: Ms. Jones is a 79 yo F with PMH of hypothyroidism who presented to the ED after a fall; she sustained a right hip fracture and subsequently had a syncopal event. - Patient Problems (1) Closed right hip fracture Comment: -POD 0 -patient tripped, sustained a fall, and then had a syncopal event - Xray in ED showing minimally impacted and minimally displaced subcapital right femoral neck fracture - Appreciate Ortho consult and recommendations - WBAT - PT/OT - DVT ppx x1 month (2) Syncope Comment: -one episode of syncope after sustaining in a fall that lead to R hip fracture - Negative orthostatic VS - Echo unremarkable - No abnormalities noted on tele -likely vasovagal secondary to pain (3) Hypothyroidism Comment: - Continue levothyroxine (4) DVT prophylaxis Comment: -per ortho: Lovenox (5) Full code status Comment: Status and Disposition: Inpatient. Anticipate d/c home when medically stable.
[2019-06-13] MEDS: ceFAZolin 1 GM* X 3 DOSES POST-OP Q8H (AddVan) IVPB SCH ×2 (21:42)
[2019-06-13] MEDS: Acetaminophen TAB* 325 MG PO PRN (21:42)
[2019-06-14] MEDS: Acetaminophen TAB* 325 MG PO PRN ×4 (03:34→22:20)
[2019-06-14] MEDS: Lactated Ringers 1000 ML Bag* 1,000 ML IV SCH (04:22)
[2019-06-14] MEDS: ceFAZolin 1 GM* X 3 DOSES POST-OP Q8H (AddVan) IVPB SCH ×4 (05:35→13:39)
[2019-06-14] MEDS: LEVOTHYROXINE 88 MCG PO SCH ×2 (05:39→05:55)
[2019-06-14] MEDS ORDERED: Senna TAB 8.6 mg* TAB PO PRN (09:41)
[2019-06-14] MEDS ORDERED: Magnesium Hydroxide LIQ* 30 ML UDC PO PRN (09:41)
[2019-06-14] MEDS ORDERED: Polyethylene Glycol 3350* 17 GM PACKET PO PRN (09:41)
[2019-06-14] MEDS ORDERED: Docusate CAP* 100 MG PO PRN (09:41)
--- NOTE | 2019-06-14 09:52 | PN ---
Progress Note - Progress Note Date of Service: 06/14/19 SOAP: Subjective: Pt is doing well. Pain is controlled with tylenol. Ambulating well with physical therapy. Denies F/C, CP/SOB or calf pain. Objective: PE- 79 y/o WDWN F NAD, A&Ox3 RLE- dressing c/d/i, calf soft NT, +DF/PF ankle, +2 Dp pulse, SILT distally Vital Signs Temp Pulse Resp BP Pulse Ox 98.5 F 73 18 142/65 96 06/14/19 07:24 06/14/19 07:24 06/14/19 07:24 06/14/19 07:24 06/14/19 07:24 Assessment: POD 1 S/P Right hip cannulated screws Plan: WBAT Cont PT/OT Cont pain management with Tylenol Lovenox for DVT prophylaxis Doing well with PT Case management to reassess for dispo Orthopedically stable for DC when medically stable
[2019-06-14] MEDS: Enoxaparin(*) 40 MG/0.4 ML SYR SUBCUT SCH (12:04)
--- NOTE | 2019-06-14 15:29 | PN ---
Subjective Date of Service: 06/14/19 Interval History: Ms. Edge states she is doing well today. She has 0/10 pain and reports a stabbing pain with the onset of ambulation that quickly resolves to a dull aching sensation. She is anxious to return home and is progressing well with PT. She is using a walker post-operatively. She has 1 stair to enter house, and reports that he has a ramp available if she is unable to complete stairs with PT tomorrow. She has no other complaints today. Family History: Unchanged from Admission Social History: Unchanged from Admission Past Medical History: Unchanged from Admission Objective Active Medications: Acetaminophen (Tylenol Tab*) 650 mg PO Q6H PRN PRN Reason: PAIN - MILD Last Admin: 06/14/19 10:15 Dose: 650 mg Docusate Sodium (Colace Cap*) 100 mg PO BID PRN PRN Reason: CONSTIPATION Enoxaparin Sodium (Lovenox(*)) 40 mg SUBCUT Q24H [facility] Last Admin: 06/14/19 12:04 Dose: 40 mg Lactated Ringer's (Lactated Ringers 1000 Ml Bag*) 1,000 mls @ 125 mls/hr IV ONCALL [facility] Last Admin: 06/14/19 04:22 Dose: 125 mls/hr Levothyroxine Sodium (Synthroid Tab*) 88 mcg PO DAILY@0600 [facility] Last Admin: 06/14/19 05:55 Dose: 88 mcg Magnesium Hydroxide (Milk Of Magnesia Liq*) 30 ml PO BID PRN PRN Reason: CONSTIPATION Ondansetron HCl (Zofran Inj*) 4 mg IV Q6H PRN PRN Reason: NAUSEA Oxycodone HCl (Roxycodone Tab*) 5 mg PO Q6H PRN PRN Reason: PAIN - SEVERE Polyethylene Glycol/Electrolytes (Miralax (17 Gm Dose Shaka)) 17 gm PO DAILY PRN PRN Reason: CONSTIPATION Senna (Senokot 8.6 Mg Tab*) 1 tab PO BEDTIME PRN PRN Reason: CONSTIPATION Vital Signs: Temp Pulse Resp BP Pulse Ox 97.8 F 86 18 127/72 96 06/14/19 15:21 06/14/19 15:21 06/14/19 15:21 06/14/19 15:21 06/14/19 15:21 Oxygen Devices in Use Now: Nasal Cannula Appearance: Ms. Edge is an older white female who is sitting in her chair with LE at floor. She appears comfortable and in no acute distress. Eyes: No Scleral Icterus, PERRLA Ears/Nose/Mouth/Throat: NL Teeth, Lips, Gums, Clear Oropharnyx, Mucous Membranes Moist Neck: NL Appearance and Movements; NL JVP, Trachea Midline Respiratory: Symmetrical Chest Expansion and Respiratory Effort, Clear to Auscultation Cardiovascular: NL Sounds; No Murmurs; No JVD, RRR, No Edema Abdominal: NL Sounds; No Tenderness; No Distention, No Hepatosplenomegaly Extremities: No Edema, No Clubbing, Cyanosis, - - R hip with CDI dressing in place; sensation intact; pedal pulses intact Neurological: Alert and Oriented x 3 Result Diagrams: 06/13/19 04:31 06/13/19 04:31 Assess/Plan/Problems-Billing Assessment: Ms. Jones is a 79 yo F with PMH of hypothyroidism who presented to the ED after a fall; she sustained a right hip fracture and subsequently had a syncopal event. - Patient Problems (1) Closed right hip fracture Comment: -POD 1 R hip cannulated screws -patient tripped, sustained a fall, and then had a syncopal event - Xray in ED showing minimally impacted and minimally displaced subcapital right femoral neck fracture - Appreciate Ortho consult and recommendations - WBAT - PT/OT - DVT ppx x1 month - Cleared for d/c from ortho perspective; will work with PT tomorrow to attempt stairs (2) Syncope Comment: -one episode of syncope after sustaining a fall that lead to R hip fracture - Negative orthostatic VS - Echo unremarkable - No abnormalities noted on tele -likely vasovagal secondary to pain experienced after fall and subsequent hip fracture (3) Hypothyroidism Comment: - Continue levothyroxine (4) DVT prophylaxis Comment: -per ortho: Lovenox (5) Full code status Comment: Status and Disposition: Inpatient. Anticipate d/c home when medically stable.
[2019-06-15] MEDS: LEVOTHYROXINE 88 MCG PO SCH (05:27)
[2019-06-15] MEDS: Acetaminophen TAB* 325 MG PO PRN ×2 (05:27→11:27)
[2019-06-15 06:05] LABS: Hematocrit 36 % (35-47); Hemoglobin 12.2 g/dL (12.0-16.0); Mean Corpuscular HGB Conc 34 g/dL (31-36); Mean Corpuscular Hemoglobin 32 pg (27-31); Mean Corpuscular Volume 92 fL (80-97); Mean Platelet Volume 9.4 fL (7.4-10.4); Platelet Count 148 10^3/uL (150-450); Red Blood Count 3.86 10^6 /uL (3.70-4.87); Red Cell Distribution Width 13 % (10-15); White Blood Count 8.1 10^3/uL (3.5-10.8)
[2019-06-15 06:21] LABS: BUN/Creatinine Ratio 16.7 (8-20); Calcium 8.5 mg/dL (8.6-10.3); EGFR African American 86.7 (>60); EGFR Non-African American 71.6 (>60); Potassium 3.6 mmol/L (3.5-5.0)
--- NOTE | 2019-06-15 08:58 | PN ---
Progress Note - Progress Note Date of Service: 06/15/19 SOAP: Subjective: resting comfortably in bed, no complaints, pain well controlled; ambulating well with PT Objective: Vital Signs Temp Pulse Resp BP Pulse Ox 99.1 F 86 19 125/84 97 06/15/19 07:33 06/15/19 07:33 06/15/19 07:33 06/15/19 07:33 06/15/19 07:33 Laboratory Last Values WBC 8.1 10^3/uL (3.5-10.8) 06/15/19 05:38 RBC 3.86 10^6 /uL (3.70-4.87) 06/15/19 05:38 Hgb 12.2 g/dL (12.0-16.0) 06/15/19 05:38 Hct 36 % (35-47) 06/15/19 05:38 MCV 92 fL (80-97) 06/15/19 05:38 MCH 32 pg (27-31) H 06/15/19 05:38 MCHC 34 g/dL (31-36) 06/15/19 05:38 RDW 13 % (10-15) 06/15/19 05:38 Plt Count 148 10^3/uL (150-450) L 06/15/19 05:38 MPV 9.4 fL (7.4-10.4) 06/15/19 05:38 Neut % (Auto) 78.4 % 06/13/19 04:31 Lymph % (Auto) 10.1 % 06/13/19 04:31 [place] % (Auto) 9.5 % 06/13/19 04:31 Eos % (Auto) 1.6 % 06/13/19 04:31 Baso % (Auto) 0.4 % 06/13/19 04:31 Absolute Neuts (auto) 8.8 10^3/ul (1.5-7.7) H 06/13/19 04:31 Absolute Lymphs (auto) 1.1 10^3/ul (1.0-4.8) 06/13/19 04:31 Absolute Monos (auto) 1.1 10^3/ul (0-0.8) H 06/13/19 04:31 Absolute Eos (auto) 0.2 10^3/ul (0-0.6) 06/13/19 04:31 Absolute Basos (auto) 0.0 10^3/ul (0-0.2) 06/13/19 04:31 Absolute Nucleated RBC 0.0 10^3/ul 06/13/19 04:31 Nucleated RBC % 0.0 06/13/19 04:31 INR (Anticoag Therapy) 1.04 (0.82-1.09) 06/13/19 04:31 Sodium 138 mmol/L (135-145) 06/15/19 05:38 Potassium 3.6 mmol/L (3.5-5.0) 06/15/19 05:38 Chloride 107 mmol/L (101-111) 06/15/19 05:38 Carbon Dioxide 25 mmol/L (22-32) 06/15/19 05:38 Anion Gap 6 mmol/L (2-11) 06/15/19 05:38 BUN 13 mg/dL (6-24) 06/15/19 05:38 Creatinine 0.78 mg/dL (0.51-0.95) 06/15/19 05:38 Est GFR ( Amer) 86.7 (>60) 06/15/19 05:38 Est GFR (Non-Af Amer) 71.6 (>60) 06/15/19 05:38 BUN/Creatinine Ratio 16.7 (8-20) 06/15/19 05:38 Glucose 96 mg/dL (70-100) 06/15/19 05:38 Calcium 8.5 mg/dL (8.6-10.3) L 06/15/19 05:38 Magnesium 2.2 mg/dL (1.9-2.7) 06/11/19 22:35 Total Bilirubin 0.30 mg/dL (0.2-1.0) 06/11/19 22:35 AST 24 U/L (13-39) 06/11/19 22:35 ALT 21 U/L (7-52) 06/11/19 22:35 Alkaline Phosphatase 80 U/L (34-104) 06/11/19 22:35 Troponin I 0.00 ng/mL (<0.03) 06/12/19 08:13 C-Reactive Protein 2.23 mg/L (<8.01) 06/11/19 22:35 B-Natriuretic Peptide 23 pg/mL (<=100) 06/11/19 22:35 Total Protein 6.8 g/dL (6.4-8.9) 06/11/19 22:35 Albumin 3.7 g/dL (3.2-5.2) 06/11/19 22:35 Globulin 3.1 g/dL (2-4) 06/11/19 22:35 Albumin/Globulin Ratio 1.2 (1-3) 06/11/19 22:35 TSH 0.09 mcIU/mL (0.34-5.60) L 06/11/19 22:35 Urine Color Yellow 06/12/19 04:45 Urine Appearance Cloudy 06/12/19 04:45 Urine pH 7.0 (5-9) 06/12/19 04:45 Ur Specific [place] 1.017 (1.010-1.030) 06/12/19 04:45 Urine Protein Negative (Negative) 06/12/19 04:45 Urine Ketones Negative (Negative) 06/12/19 04:45 Urine Blood Negative (Negative) 06/12/19 04:45 Urine Nitrate Negative (Negative) 06/12/19 04:45 Urine Bilirubin Negative (Negative) 06/12/19 04:45 Urine Urobilinogen Negative (Negative) 06/12/19 04:45 Ur Leukocyte Esterase Negative (Negative) 06/12/19 04:45 Urine Glucose Negative (Negative) 06/12/19 04:45 Influenza A (Rapid) Negative (Negative) 06/12/19 02:25 Influenza B (Rapid) Negative (Negative) 06/12/19 02:25 incision: c/d/i PE: able to DF/PF, 2+ DP pulse and intact sensation Assessment: s/p right hip cannulated screws; POD #2 Plan: 1) PT/OT-WBAT 2) Lovenox for DVT prophylaxis 3) likely home today if she meets her PT goals and cleared by Medicine; F/U with Dr. Burr in 10-14 days
[2019-06-15] MEDS: Enoxaparin(*) 40 MG/0.4 ML SYR SUBCUT SCH (11:28)
[2019-06-15 11:37] VITALS: BP 129/62
--- NOTE | 2019-06-16 00:02 | DS ---
CC: Dr. Taco Gomez; Dr. Arron Saucedo * DISCHARGE SUMMARY: DATE OF ADMISSION: 06/12/19 DATE OF DISCHARGE: 06/15/19 PRIMARY CARE PROVIDER: Dr. Taco Gomez. OTHER PROVIDER: Dr. Arron Saucedo. ATTENDING PHYSICIAN: Dr. Marni Rodríguez * (dictated by AMELIA Gutierrez). PRIMARY DIAGNOSES: 1. Status post right hip cannulated screws for right femur fracture, 06/13/19. 2. Syncope, likely vasovagal, status post fall and hip fracture. SECONDARY DIAGNOSIS: Hypothyroidism. STUDIES WHILE IN THE HOSPITAL: 1. Right hip/pelvis x-ray. Impression: Mildly impacted and minimally medially displaced subcapital right femoral neck fracture predisposing decreased bone density. 2. Right femur. Impression: Mildly impacted and minimally medially displaced subcapital right femoral neck fracture predisposing decreased bone density. 3. Chest x-ray. Impression: No active cardiopulmonary disease. 4. Transthoracic echocardiogram. Summary: LV systolic function normal. Estimated EF 55% to 60%. Wall motion normal. No regional wall motion abnormalities. Trace MR. No evidence of . No significant TR. Pulmonary artery systolic pressure cannot be accurately estimated. 5. Right hip and pelvis. Impression: The bones are osteopenic. The minimally impacted right subcapital femoral neck fracture is re-demonstrated and unchanged in alignment. There is mild bilateral osteoarthropathy. 6. CT right lower extremity. Impression: There is a slightly impacted right subcapital femoral neck fracture. 7. Right hip OR film. Impression: Intraoperative control films. CONSULTATIONS WHILE IN THE HOSPITAL: Orthopedics. Right hip minimally impacted subcapital femoral neck fracture. Plan is to obtain new set of x-rays to evaluate for any change. Hospitalist cleared the patient for surgery. She will remain n.p.o. and nonweightbearing on right lower extremity. Obtain a CT of the fracture to further evaluate, take the patient to OR for right hip cannulated screw fixation. PROCEDURES WHILE IN THE HOSPITAL: Closed reduction and internal fixation of the right femoral neck hip fracture with cannulated screws on 06/13/19. DISCHARGE MEDICATIONS: Home medications : 1. Acetaminophen 650 mg p.o. q.6 hours p.r.n. pain. 2. Levothyroxine 88 mcg p.o. daily. 3. Multivitamins/mineral 1 tab p.o. daily. 4. Red yeast rice 600 mg p.o. daily. New home medication: 1. Tylenol p.r.n. pain. HISTORY OF PRESENT ILLNESS/HOSPITAL COURSE: Ms. Edge is a 79-year-old female with a past medical history of hypothyroidism, who presented to the ER on 06/12/19 with complaints of mechanical fall followed by a syncopal event. The patient states she was stepping over a stool. She fell landed on the right hip, experienced sudden pain and then syncopized moments later. She reports that she has a history of 2 other episodes of syncope, one after she injured her knee and one after donating blood. It is likely that her syncopal episode was vasovagal in nature and due to pain stimulus. With this, no further workup was needed. In the ER, the patient received a full workup, which included right hip imaging that showed an impacted right femoral neck hip fracture. Discussion was held with the patient and she opted for surgery. She was medically cleared for surgery and had closed reduction, internal fixation with cannulated screws to the right femoral neck hip fracture. She tolerated this well. Immediately postop, the patient was up ambulating to the bathroom. She worked with Physical Therapy and was able to ambulate well and tolerated stairs safely and comfortably. She reports that she is eager to be discharged home. She states that Tylenol controls her pain well and therefore she does not believe she needs any further medications. She will be sent home with a rolling walker and instructions to continue physical therapy. She is eating well. She is urinating without difficulty. She had a bowel movement this morning. She reports that she does have pain in the right hip, but it only occurs in the first few steps when she ambulates and then she experiences a dull ache. When she is at rest, she has no pain. She is eager for discharge home. Ms. Edge is stable for discharge to home. PHYSICAL EXAMINATION: Vital Signs: Temperature 98.9 oral, heart rate 72, respiratory rate 18, oxygen saturation 98% on room air, blood pressure 129/62. General: Ms. Edge is a well-developed, well-nourished, healthy-appearing elderly white woman who is sitting up in bed with the lower extremities elevated. She is pleasant and cooperative and appears to be in no acute distress. HEENT: Normocephalic and atraumatic. Visual barrett are grossly intact. PERRL. EOMI. Hearing is grossly intact. Oral mucosa membranes are moist. There are no lesions. Oropharynx is clear. The tongue is at midline. Palate elevates symmetrically. Cardiovascular: Regular rate and rhythm with S1, S2 present. No murmurs, rubs, clicks, or gallops. There is no JVD or peripheral edema. Pulmonary: Symmetrical chest expansion, no use of accessory muscles. Clear to auscultation bilaterally without rhonchi, wheeze, or rales. Abdomen: Bowel sounds in all quadrants, soft, nontender to palpation. Musculoskeletal: There is a right dressing in place that is clean, dry and intact. The patient has sensation distally. Pedal pulses are palpable bilaterally. The patient is able to move all her extremities. Neuro: The patient is awake. She is alert and oriented x3. Cranial nerves II through XII are grossly intact. DISCHARGE PLAN: Mr. Edge will be discharged to home. CONDITION: Good. DIET: 1. Resume home diet. 2. Increase fluids and fiber to prevent constipation. 3. Continue to use stool softeners, call office if no bowel movements within 48 hours. ACTIVITY: 1. Weightbearing as tolerated. 2. Continue physical therapy and occupational therapy. 3. Continue to use walker. 4. Wound care. 5. Okay to shower on postop day#3. No bathing, swimming or submerging wound. 6. Use gentle soap and pat dry. 7. Dressing changes: Remove all dressing and replace with new gauze and tape. MEDICATIONS: 1. Continue DVT prophylaxis with Lovenox 40 mg subcu daily x30 days post-op. 2. Continue pain control with Tylenol. EDUCATION: 1. Follow up with primary care provider in 4 to 7 days. 2. Follow up with Dr. Burr within 10 to 14 days, call office for appointment. 3. Follow up with Dr. Perkins, [facility], call office for appointment. 4. Return to the ER or nearest hospital if you experience any increased drainage, erythema, increased pain associated with surgical site or high fevers , return for chest pain or discomfort, shortness of breath, high fevers, chills , night sweats, dizziness, lightheadedness, loss of consciousness, or any other worrisome signs or symptoms. This is a summarized report of a complex medical history and hospital stay. For further details, please see entire medical record. TIME SPENT: Approximately 35 minutes was spent on this discharge summary, greater than half of that time was spent [id number] with the patient and her discussing discharge plans, and instructions. AMELIA KONG [id number]/CPS #: [id number] ESTEVAN
== END 2019-06-15 12:04 | disposition home health service (06) | DRG 482 ==
LOC: ED 22:02 → MEDTELE 06-12 02:25 → OBSVTOIN 06-12 11:00 → SSU 06-12 15:12
PROVIDERS: ADMIT Student in an Organized Health Care Education/Training Program; ATTEND Internal Medicine
PROC: 0QS634Z Reposition Right Upper Femur with Internal Fixation Device, Percutaneous Approach (ICD-10-PCS; principal; 2019-06-13 11:30)
DX: S72.011A Unspecified intracapsular fracture of right femur, initial encounter for closed fracture (principal); R55 Syncope and collapse; E03.9 Hypothyroidism, unspecified; W17.89XA Other fall from one level to another, initial encounter; R09.02 Hypoxemia; M21.051 Valgus deformity, not elsewhere classified, right hip; Y92.009 Unspecified place in unspecified non-institutional (private) residence as the place of occurrence of the external cause; Z88.8 Allergy status to other drugs, medicaments and biological substances; Z79.890 Hormone replacement therapy; Z92.3 Personal history of irradiation
CPT/HCPCS: 36415; 71046; 80048; 80053; 81003; 83735; 83880; 84443; 84484; 85025; 85027; 85610; 86140; 93005; 93306; 99284; A9270-GY; G0378; J0690; J1650; J2250; J2704; J3010

== ENCOUNTER 2024-06-04 12:12 | Observation (INO) ==
[2024-06-04 12:36] LABS: ABS Basophils 0.1 10^3/uL (0.0-0.1); ABS Eosinophils 0.1 10^3/uL (0.0-0.5); ABS Lymphocytes 1.6 10^3/uL (1.0-4.8); ABS Monocytes 0.9 10^3/uL (0.0-0.9); ABS Neutrophils 6.9 10^3/uL (1.5-7.6); Eosinophil % 1.6 %; Hematocrit 40.2 % (35-45); Hemoglobin 13.7 g/dL (11.5-14.3); Mean Corpuscular Hemoglobin 32.7 pg (27-33); Mean Corpuscular Hgb Conc 34.2 g/dL (31-36); Mean Corpuscular Volume 95.7 fL (80-97); Mean Platelet Volume 8.5 fL (7.5-11.2); Platelet Count 226 10^3/uL (150-450); Red Cell Distribution Width 13.4 % (12-17); White Blood Count 9.6 10^3/uL (3.8-11.8)
[2024-06-04 12:53] LABS: INR 1.02 (0.85-1.14)
[2024-06-04 13:14] LABS: Albumin 3.6 g/dL (3.5-5.7); Albumin/Globulin Ratio 1.2 (1-3); Calcium 9.1 mg/dL (8.6-10.3); Creatinine, Serum 1.04 mg/dL (0.51-0.95); Potassium 4.1 mmol/L (3.5-5.0); Total Bilirubin 0.5 mg/dL (0.2-1.0); Total Protein 6.6 g/dL (6.4-8.9); eGFR CKD-EPI 53.7 (>60)
[2024-06-04] MEDS: Morphine 2 MG/ML SYRINGE IV ONE (13:41)
[2024-06-04] MEDS: Iodixanol 320 (CONTRAST) 100 ML SDV IV ONE (13:53)
[2024-06-04 14:04] LABS: High Sensitivity Troponin 1 Hr < 3 pg/mL (<15)
[2024-06-04 15:47] LABS: Urine Appearance Turbid; Urine Bilirubin Negative (Negative); Urine Blood 1+ (Negative); Urine Color Light-Yellow; Urine Glucose Negative (Negative); Urine Ketones Negative (Negative); Urine Nitrite 2+ (Negative); Urine Protein Trace (Negative); Urine Specific Gravity 1.034 (1.002-1.030); Urine Urobilinogen Negative (Negative); Urine pH 7.5 (5.0-8.0)
[2024-06-04 16:29] LABS: Urine Bacteria Absent /HPF (Absent); Urine Red Blood Cell 3+(>10/hpf) /HPF (0-Trace); Urine Squamous Epithelial Cell Present /HPF (Absent); Urine White Blood Cell 3+(>20/hpf) /HPF (0-Trace)
[2024-06-04] MEDS: Morphine 4 MG/ML VIAL (1 ml) IV ONE (17:42)
[2024-06-04] MEDS: Piperacillin/Tazobac 3.375 BAG 3.375 GM/100 ML BAG IV ONE (17:42)
[2024-06-05] MEDS ORDERED: Morphine 2 MG/ML SYRINGE IV PRN ×2 (02:48)
[2024-06-05] MEDS: Lactated Ringers 1000 ml BAG 1,000 ML IV ONE (02:56)
[2024-06-05] MEDS: Ondansetron 4 mg VIAL 2 MG/ML 2 ml VIAL IV PRN (03:03)
[2024-06-05] MEDS: Enoxaparin 40 MG/0.4 ML SYR SUBCUT SCH (04:02)
[2024-06-05 06:35] LABS: ABS Basophils 0.1 10^3/uL (0.0-0.1); ABS Lymphocytes 0.9 10^3/uL (1.0-4.8); ABS Monocytes 0.7 10^3/uL (0.0-0.9); ABS Neutrophils 8.7 10^3/uL (1.5-7.6); Eosinophil % 0.3 %; Hematocrit 39.4 % (35-45); Hemoglobin 13.6 g/dL (11.5-14.3); Lymphocyte % 8.8 %; Mean Corpuscular Hgb Conc 34.5 g/dL (31-36); Mean Corpuscular Volume 95.7 fL (80-97); Mean Platelet Volume 8.9 fL (7.5-11.2); Platelet Count 221 10^3/uL (150-450); Red Blood Count 4.12 10^6/uL (3.63-4.92); Red Cell Distribution Width 13.1 % (12-17); White Blood Count 10.5 10^3/uL (3.8-11.8)
[2024-06-05 06:51] LABS: Calcium 9.3 mg/dL (8.6-10.3); Creatinine, Serum 1.04 mg/dL (0.51-0.95); Potassium 4.2 mmol/L (3.5-5.0); eGFR CKD-EPI 53.7 (>60)
[2024-06-05] MEDS: cefTRIAXone 1 gm/50 mL D5W 1 GM/50 ML BAG IV SCH (08:27)
[2024-06-05] MEDS ORDERED: fentaNYL 100 mcg/2 ml 50 MCG/ML VIAL ONE (09:04)
[2024-06-05] MEDS: Sulfur Hexaflouride MICROSPHR 25 MG VIAL IV PRN (10:19)
[2024-06-05] MEDS: Polyethylene Glycol 3350 17 GM PACKET PO SCH (11:09)
[2024-06-05 13:17] VITALS: BP 143/68
[2024-06-05] MEDS ORDERED: Senna TAB 8.6 mg TAB PO SCH (21:00)
== END 2024-06-05 16:50 | disposition home or self-care (01) ==
LOC: EDHOLD 12:12 → ED 12:12 → SUATTDRO 23:39 → MED 06-05 01:03
PROVIDERS: ADMIT Student in an Organized Health Care Education/Training Program; ATTEND Internal Medicine